=== PATIENT | male | born 1970 | race Caucasian/White ===

== ENCOUNTER 2018-11-22 20:34 | Emergency (ER) | payer OTHER ==
[~2018-11-22] VITALS: Ht 175.3 cm; Wt 99.8 kg
--- NOTE | 2018-11-22 20:55 | NUR ---
PT BIBSELF C/C DIZZINESS, BILAT UPPER/LOWER EXTREMITY TINGLY SENSATION X 2 WEEKS. 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 AOX4. NAD NOTED. RESP EVEN AND UNLABORED. PT ON MONITOR IN BED 10. WILL CONTINUE TO MONITOR.
--- NOTE | 2018-11-22 21:18 | NUR ---
TECH AT BEDSIDE FOR EKG
[2018-11-22 21:21] LABS: BASOPHILS % (AUTO) 0.5 % (0.0-2.0); EOSINOPHILS % (AUTO) 0.8 % (0.0-6.0); HEMATOCRIT 42 % (39-51); HEMOGLOBIN 14.8 g/dL (13.5-17.5); LYMPHOCYTES # (AUTO) 1.1 /CMM (0.8-4.8); MEAN CORPUSCULAR HGB CONC 35 g/dl (31.0-36.0); MEAN CORPUSCULAR VOLUME 93 fL (80-96); MONOCYTES # (AUTO) 0.2 /CMM (0.1-1.30); MONOCYTES % (AUTO) 4.4 % (2.0-12.0); NEUTROPHILS # (AUTO) 4.2 /CMM (1.8-8.9); NEUTROPHILS % (AUTO) 74.3 % (43.0-81.0); PLATELET COUNT (AUTO) 241 /CMM (150-450); RED BLOOD CELL COUNT(AUTO) 4.56 MIL/uL (4.5-6.0); WHITE BLOOD COUNT (AUTO) 5.6 K/uL (4.3-11.0)
[2018-11-22 21:24] LABS: ABG BASE EXCESS -2.4 mmol/L; ABG OXYGEN SATURATION 95.3 % (92.0-98.5); ABG PCO2 31.3 mmHg (35.0-45.0); ABG PH 7.438 (7.350-7.450); ABG PO2 78.4 mmHg (75.0-100.0); COHb 0.9 % (0.5-1.5); MetHb 0.6 % (0.0-1.5); O2Hb 93.9 % (94.0-97.0); SITE, ABG Right Radial; VENT MODE, BG Room Air
[2018-11-22] MEDS: IV NS 0.9% 1,000 ML BAG IV ONE (21:31)
--- NOTE | 2018-11-22 21:34 | NUR ---
RADIOLOGY AT BEDSIDE FOR XRAY
[2018-11-22 21:45] LABS: CALCIUM, SERUM 9.2 mg/dL (8.5-10.1); CREATININE 1.2 mg/dL (0.6-1.3); POTASSIUM 3.2 mmol/L (3.5-5.1)
[2018-11-22 22:44] VITALS: BP 122/89
--- NOTE | 2018-11-22 23:09 | NUR ---
IV removed. Catheter intact and site benign. Pressure and 4x4 applied to site. No bleeding noted.Patient discharged to home in stable condition. Written and verbal after care instructions given. Patient verbalizes understanding of instruction. PT AMBULATORY WITH STEADY GAIT.
== END 2018-11-22 23:11 | disposition home or self-care (01) ==
LOC: ER 20:39
DX: R42 Dizziness and giddiness (principal); G44.219 Episodic tension-type headache, not intractable; F41.9 Anxiety disorder, unspecified; I10 Essential (primary) hypertension
CPT/HCPCS: 36415; 36600; 71045; 80048; 84484; 85025; 93005; 96360; 99284; A4606; J7030